=== PATIENT | male | born 1960 | race Two or more races ===

== ENCOUNTER 2020-11-01 14:50 | Emergency (ER) | payer MEDICAID, OTHER ==
[~2020-11-01] VITALS: Ht 165.1 cm; Wt 76.2 kg
[2020-11-01 16:17] LABS: Basophils # (auto) 0 10 ^3/uL (0-0.2); Basophils % (auto) 0.4 % (0.0-2.0); Eosinophils # (auto) 0.1 10 ^3/uL (0-0.8); Eosinophils % (auto) 0.9 % (0.0-7.0); Hematocrit 48.6 % (41.0-53.0); Lymphocytes # (auto) 1.8 10 ^3/uL (0.4-5.4); Lymphocytes % (auto) 21.8 % (10.0-50.0); Mean Corpuscular Hemoglobin 30.6 pg (28.0-32.0); Mean Corpuscular Volume 87.7 fL (80.0-100.0); Monocytes # (auto) 0.8 10 ^3/uL (0-1.3); Monocytes % (auto) 9.4 % (0.0-12.0); Neutrophils # (auto) 5.7 10 ^3/uL (1.6-8.6); Neutrophils % (auto) 67.5 % (37.0-80.0); Nucleated Red Blood Cells % 0.3 %; Platelet Count (auto) 218 10^3/uL (140-450); Red Blood Cells 5.55 10^6/uL (4.5-5.90); Red Cell Distribution Width 14.4 % (11.8-14.3); White Blood Cell 8.4 10^3/uL (4.4-10.8)
[2020-11-01 16:28] LABS: Alanine Aminotransferase 28 U/L (16-61); Albumin 3.4 g/dL (3.4-5.0); Anion Gap 8 (5-15); Aspartate Aminotransferase 14 U/L (15-37); Blood Urea Nitrogen 17 mg/dL (7-18); Calcium 8.1 mg/dL (8.5-10.1); Carbon Dioxide 27 mmol/L (21-32); Chloride 103 mmol/L (98-107); GFR African American 79 mL/min; GFR Non-African American 65 mL/min; Glucose 82 mg/dL (74-106); Magnesium 2.1 mg/dL (1.6-2.6); Potassium 3.1 mmol/L (3.5-5.1); Sodium 138 mmol/L (136-145)
[2020-11-01 16:33] LABS: Alkaline Phosphatase 71 U/L (45-117); Bilirubin, Total 0.3 mg/dL (0.2-1.0); Total Protein 7.6 g/dL (6.4-8.2)
[2020-11-01] MEDS ORDERED: POTASSIUM CHL 20 Meq TABLET PO ONE (16:45)
[2020-11-01 18:00] VITALS: BP 142/88
== END 2020-11-01 19:12 | disposition home or self-care (01) ==
LOC: ER 14:50
DX: S09.8XXA Other specified injuries of head, initial encounter (principal); R55 Syncope and collapse; R53.1 Weakness; I10 Essential (primary) hypertension; W18.31XA Fall on same level due to stepping on an object, initial encounter; Y93.89 Activity, other specified; Y92.89 Other specified places as the place of occurrence of the external cause; Y99.8 Other external cause status
CPT/HCPCS: 36415; 70450; 71046; 72125; 80053; 83735; 84484; 85025; 93005

== ENCOUNTER 2024-10-18 13:26 | Inpatient (IN) | payer MEDICAID ==
[~2024-10-18] VITALS: Ht 162.6 cm; Wt 80.4 kg
[2024-10-18 14:27] LABS: Basophils # (auto) 0 10 ^3/uL (0-0.2); Basophils % (auto) 0.3 % (0.0-2.0); Eosinophils # (auto) 0 10 ^3/uL (0-0.8); Eosinophils % (auto) 0.4 % (0.0-7.0); Hematocrit 53.2 % (41.0-53.0); Hemoglobin 18.2 g/dL (13.5-17.5); Lymphocytes # (auto) 0.9 10 ^3/uL (0.4-5.4); Mean Corpuscular Hemoglobin 29.6 pg (28.0-32.0); Mean Corpuscular Hgb Conc. 34.2 g/dL (32.0-36.0); Mean Corpuscular Volume 86.4 fL (80.0-100.0); Monocytes # (auto) 0.5 10 ^3/uL (0-1.3); Monocytes % (auto) 4.7 % (0.0-12.0); Neutrophils # (auto) 8.3 10 ^3/uL (1.6-8.6); Neutrophils % (auto) 85.6 % (37.0-80.0); Nucleated Red Blood Cells % 0.2 %; Platelet Count (auto) 219 10^3/uL (140-450); Red Blood Cells 6.16 10^6/uL (4.5-5.90); Red Cell Distribution Width 15.1 % (11.8-14.3); White Blood Cell 9.7 10^3/uL (4.4-10.8)
[2024-10-18 14:39] LABS: Chloride 107 mmol/L (98-107); Potassium 3.7 mmol/L (3.5-5.1); Sodium 143 mmol/L (136-145)
[2024-10-18 14:40] LABS: Anion Gap 12 (5-15); Calcium 10.3 mg/dL (8.7-10.4); Carbon Dioxide 24 mmol/L (20-31)
[2024-10-18 14:45] LABS: BUN/Creatinine Ratio 12.5 (10.0-20.0); Blood Urea Nitrogen 15 mg/dL (9-23); Glucose 104 mg/dL (74-106)
--- NOTE | 2024-10-18 14:46 | DVH ---
EXAM: XY CHEST PORTABLE TECHNIQUE: Single frontal chest radiograph CLINICAL HISTORY: hi bp COMPARISON: None Findings/Impression: Frontal chest radiograph demonstrates no acute osseous or superficial soft tissue abnormalities. The trachea is midline. The cardiac silhouette and mediastinum are within normal limits. No pneumothorax, pleural effusions, or consolidations.
[2024-10-18] MEDS: hydrALAZINE HCL 20 MG/ML VL IV ONE (15:11)
[2024-10-18] MEDS ORDERED: SODIUM CHLORIDE 0.9% 1,000 ML IV ONE (15:15)
[2024-10-18] MEDS: ONDANSETRON HCL 4 MG/2 ML VIAL IV ONE (15:24)
[2024-10-18] MEDS: ACETAMINOPHEN 325 MG TAB PO ONE (15:24)
--- NOTE | 2024-10-18 15:33 | ED.PDOC ---
HPI Comments 64 year old male VALENTINA presents to the ED with chief complaint of hypertension. Patient reports that he has been out of his BP medication for the past 2 weeks. Patient relays that he now has associated headache, nausea/vomiting, SOB, and generalized weakness for the past 2 weeks as well. Patient states he just got his refills for his medication yesterday, but has not taken them. Patient denies any chest pain, SOB, dizziness, blurred vision, numbness, weakness, tingling, or fever. 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, Medications, Allergies Allergies: Coded Allergies: NO KNOWN ALLERGIES (Unverified , 06/26/11) Home Meds Reported Medications Paroxetine Hydrochloride (Paroxetine Hydrochloride) 20 Mg Tab, 1 TAB PO DAILY 10/18/24 Atorvastatin Calcium (ATORVASTATIN CALCIUM) 20 Mg Tab, 1 TAB PO HS 10/18/24 Tamsulosin Hcl (Tamsulosin Hcl) 0.4 Mg Cap, 0.4 MG PO DAILY 10/18/24 Finasteride (Finasteride) 5 Mg Tab, 1 TAB PO 10/18/24 Hydrochlorothiazide (Hydrochlorothiazide) 12.5 Mg Tab, 1 TAB PO QAM 10/18/24 Atenolol (Atenolol) 50 Mg Tab, 1 TAB PO DAILY 10/18/24 Information Source: Patient, Emergency Med Personnel Mode of Arrival: EMS Severity: Moderate Timing: Weeks Duration: Since onset Prehospital treatment: None Onset: At Rest Cardiac Risk Factors: Hyperlipidemia, HTN PE Risk Factors: None History of: None Associated Signs and Symptoms: SOB, N/V Past Medical History PAST MEDICAL HISTORY: Anxiety, CKF, High Lipids, HTN, Thyroid Surgical History (Other): Hemorrhoid surgery Family History Family History: Reviewed,noncontributory to illness Social History Smoker: Non-Smoker Alcohol: Occasionally Drugs: Denies Drug Use Lives In: Home Constitutional: denies: chills, diaphoresis, fatigue, fever, malaise, sweats, weakness, others EENTM: denies: blurred vision, double vision, ear bleeding, ear discharge, ear drainage, ear pain, ear ringing, eye pain, eye redness, hearing loss, mouth pain, mouth swelling, nasal discharge, nose bleeding, nose congestion, nose pain, photophobia, tearing, throat pain, throat swelling, voice changes, others Respiratory: reports: shortness of breath; denies: cough, hemoptysis, orthopnea, SOB at rest, SOB with excertion, stridor, wheezing, others Cardiovascular: denies: chest pain, dizzy spells, diaphoresis, Dyspnea on exertion, edema, irregular heart beat, left arm pain, lightheadedness, palpitations, PND, syncope, others Gastrointestinal: reports: nausea, vomiting; denies: abdomen distended, abdominal pain, blood streaked bowels, constipated, diarrhea, dysphagia, difficulty swallowing, hematemesis, melena, poor appetite, poor fluid intake, rectal bleeding, rectal pain, others Genitourinary: denies: burning, dysuria, flank pain, frequency, hematuria, incontinence, penile discharge, penile sore, pain, testicle pain, testicle swelling, urgency, others Neurological: reports: headache; denies: dizziness, fainting, left sided numbness, left sided weakness, numbness, paresthesia, pre-existing deficit, right sided numbness, right sided weakness, seizure, speech problems, tingling, tremors, weakness, others Musculoskeletal: denies: back pain, gout, joint pain, joint swelling, muscle pain, muscle stiffness, neck pain, others Integumetry: denies: bruises, change in color, change in hair/nails, dryness, laceration, lesions, lumps, rash, wounds, others Allergic/Immunocompromised: denies: Difficulty Healing, Frequent Infections, Hives, Itching, others Hematologic/Lymphatic: denies: anemia, blood clots, easy bleeding, easy bruising, swollen glands, others Endocrine: denies: excessive hunger, excessive sweating, excessive thirst, excessive urination, flushing, intolerance to cold, intolerance to heat, unexplained weight gain, unexplained weight loss, others Psychiatric: denies: anxiety, bipolar disorder, depression, hopeless, panic disorder, schizophrenia, sleepless, suicidal, others All Other Systems: Reviewed and Negative Physical Exam General Appearance: Mild Distress HEENT: PERRL/EOMI, Other (Face symmetric. Moist mucous membranes.) Neck: Full Range of Motion, Normal Inspection Respiratory: Lungs Clear, No Accessory Muscle Use, No Respiratory Distress, Normal Breath Sounds Cardiovascular: No Edema, No JVD, Regular Rate/Rhythm Breast Exam: Deferred Gastrointestinal: Non Tender, Soft, Other (Actively vomiting) Genitalia: Deferred Pelvic: Deferred Rectal: Deferred Extremities: Normal inspection, Normal range of motion, Non-tender, No pedal edema Neurologic: Alert (Oriented x4), Normal Affect, Normal Mood, Other (Ambulatory. ) Cerebellar Function: NOT DONE Reflexes: NOT DONE Skin: Dry, Normal Color, Warm Lymphatic: NOT DONE EKG EKG : Comments Sinus rhythm, rate 80, MS prolonged at 208, normal QRS and QTC intervals, left axis deviation, old inferior or anteroseptal infarct, nonspecific T change. Was a procedure done? Was a procedure done?: No CP Differential Dx Differential Diagnosis: Renal Failure, Other (Hypertensive urgency/emergency, CVA, vascular headache, among others) Differential Diagnosis: CHF Differential Diagnosis: Myocardial Infarction X-Ray, Labs, Meds, VS Vital Signs Date Time Temp Pulse Resp B/P (MAP) Pulse Ox O2 Delivery O2 Flow Rate FiO2 10/18/24 16:18 92 190/120 10/18/24 16:15 Room Air* 0 21 10/18/24 15:24 98.4 10/18/24 15:11 162/139 10/18/24 15:10 98.4 93 13 162/139 (147) 96 98.4 10/18/24 13:33 80 10/18/24 13:28 98.2 85 18 176/118 (137) 97 98.2 Lab Test 10/18/24 17:18 10/18/24 15:25 10/18/24 14:10 Range/Units Urine Color Light-yellow Yellow Urine Clarity Clear Clear Urine pH 5.5 5.0-9.0 Urine Specific [place] 1.020 1.001-1.035 Urine Protein 2+ H Negative Urine Ketones 2+ H Negative Urine Blood 1+ H Negative /uL Urine Nitrite Negative Negative Urine Bilirubin Negative Negative Urine Urobilinogen Normal Negative mg/dL Urine Leukocyte Esterase Negative Negative /uL Urine RBC 4 0 - 3 /hpf Urine Microscopic WBC 7 H 0-3 /HPF Urine Squamous Epithelial Cells None seen <5 /hpf Urine Bacteria None seen None Seen /hpf Urine Mucus Few None Seen Urine Glucose 4+ H Normal mg/dL Troponin I High Sensitivity 5 5 </=54 ng/L White Blood Count 9.7 4.4-10.8 10^3/uL Red Blood Count 6.16 H 4.5-5.90 10^6/uL Hemoglobin 18.2 H 13.5-17.5 g/dL Hematocrit 53.2 H 41.0-53.0 % Mean Corpuscular Volume 86.4 80.0-100.0 fL Mean Corpuscular Hemoglobin 29.6 28.0-32.0 pg Mean Corpuscular Hemoglobin Concent 34.2 32.0-36.0 g/dL Red Cell Distribution Width 15.1 H 11.8-14.3 % Platelet Count 219 140-450 10^3/uL Mean Platelet Volume 8.9 6.9-10.8 fL Neutrophils (%) (Auto) 85.6 H 37.0-80.0 % Lymphocytes (%) (Auto) 9.0 L 10.0-50.0 % Monocytes (%) (Auto) 4.7 0.0-12.0 % Eosinophils (%) (Auto) 0.4 0.0-7.0 % Basophils (%) (Auto) 0.3 0.0-2.0 % Neutrophils # (Auto) 8.3 1.6-8.6 10 ^3/uL Lymphocytes # (Auto) 0.9 0.4-5.4 10 ^3/uL Monocytes # (Auto) 0.5 0-1.3 10 ^3/uL Eosinophils # (Auto) 0 0-0.8 10 ^3/uL Basophils # (Auto) 0 0-0.2 10 ^3/uL Nucleated Red Blood Cells 0.2 % Sodium Level 143 136-145 mmol/L Potassium Level 3.7 3.5-5.1 mmol/L Chloride Level 107 98-107 mmol/L Carbon Dioxide Level 24 20-31 mmol/L Anion Gap 12 5-15 Blood Urea Nitrogen 15 9-23 mg/dL Creatinine 1.20 0.700-1.30 mg/dL Glomerular Filtration Rate Calc 68 >90 mL/min BUN/Creatinine Ratio 12.5 10.0-20.0 Serum Glucose 104 74-106 mg/dL Calcium Level 10.3 8.7-10.4 mg/dL B-Type Natriuretic Peptide 16.91 0-100 pg/mL Current Medications Medications (Trade) Dose Ordered Sig/Ashanti Route Start Time Stop Time Status Last Admin Hydralazine HCl (Apresoline Injection) 10 mg ONCE ONCE IV 10/18/24 14:15 10/18/24 14:16 DC 10/18/24 15:11 Acetaminophen (Tylenol Tablet) 650 mg ONCE ONCE PO 10/18/24 15:15 10/18/24 15:16 DC 10/18/24 15:24 Ondansetron HCl (Zofran) 4 mg ONCE ONCE IV 10/18/24 15:30 10/18/24 15:31 DC 10/18/24 15:24 Labetalol HCl (Labetalol HCl) 10 mg ONCE ONCE IV 10/18/24 15:30 10/18/24 15:31 DC 10/18/24 16:18 Ketorolac Tromethamine (Toradol Injection) 15 mg ONCE ONCE IV 10/18/24 16:45 10/18/24 16:47 DC 10/18/24 16:49 Metoclopramide HCl (Reglan Injection) 10 mg ONCE ONCE IV 10/18/24 16:45 10/18/24 16:47 DC 10/18/24 16:49 Labetalol HCl (Labetalol HCl) 10 mg ONCE ONCE IV 10/18/24 17:25 10/18/24 17:27 DC 10/18/24 17:28 PROCEDURE(s): HWOCT - HEAD WITHOUT CONTRAST REASON: hi bp headache n/v ORDER NUMBER(s): [id number], ACCESSION NUMBER(s): [id number] EXAM: CT HEAD WITHOUT CONTRAST INDICATION: hi bp headache n/v TECHNIQUE: CT of the head without intravenous contrast. Radiation Dose Information: CT Dose: CTDI volume is 56.36 mGy. Dose-length product is 997.73 mGy*cm The dose indicators for CT are the volume Computed Tomography (CT) Dose Index (CTDIvol) and the Dose Length Product (DLP), and are measured in units of mGy and mGy-cm, respectively. These indicators are not patient dose, but values generated from the CT scanner acquisition factors. The report includes radiation exposure data for exposures received during this examination. COMPARISON: HEAD WITHOUT CONTRAST on DOS: 11/01/20 FINDINGS: There is no evidence of acute intracranial hemorrhage, extra-axial collection, mass effect, midline shift, herniation or hydrocephalus. The ventricles, sulci and cisterns are age appropriate. The nguyen-white differentiation is intact. Patchy periventricular and subcortical white matter hypoattenuation is nonspecif ic but may be related to small vessel ischemic disease. The visualized paranasal sinuses and mastoid air cells are clear. The surrounding soft tissues and osseous structures are unremarkable. IMPRESSION: 1. No acute intracranial abnormality. 2. No acute intracranial hemorrhage. 3. No paranasal sinus or mastoid disease. HS:Y EDURE(s): CXRP - CHEST PORTABLE REASON: va bp ORDER NUMBER(s): [id number], ACCESSION NUMBER(s): [id number] EXAM: XY CHEST PORTABLE TECHNIQUE: Single frontal chest radiograph CLINICAL HISTORY: va bp COMPARISON: None Findings/Impression: Frontal chest radiograph demonstrates no acute osseous or superficial soft tissue abnormalities. The trachea is midline. The cardiac silhouette and mediastinum are within normal limits. No pneumothorax, pleural effusions, or consolidations. X-Ray, Labs, Meds, VS Comment 64-year-old male with a history of hypertension, CKD, hyperlipidemia and anxiety presenting with headache, nausea, vomiting, shortness of breath and elevated blood pressure Vitals remarkable for BP 190/120 Exam remarkable for active vomiting Rhythm strip independently interpreted by me: Sinus rhythm, rate 80, no ectopy. head CT and chest x-ray unremarkable CBC, basic metabolic panel, BNP and troponins unremarkable. UA positive for ketones, protein, blood, WBCs and glucose Patient treated with the following in the ED: Hydralazine 10 mg IV, Zofran 4 mg IV, morphine 4 mg IV, labetalol 10 mg IV On re-evaluation, nausea and headache have improved. No new neurologic changes in the ED. Blood pressure was 158/110. Plan is to admit the patient for blood pressure control. Time of 1ST Reevaluation: 16:31 Reevaluation 1ST: Unchanged Patient Education/Counseling: Diagnosis, Treatment Family Education/Counseling: No Family Present Departure 1 Departure Time of Disposition: 17:00 Impression: Primary Impression: Hypertensive emergency Disposition: 09 ADMITTED INPATIENT Admit to: [facility] Condition: Guarded Critical Care Note Critical Care Time?: Yes (35 min-critical care time only) Critical care comment: Critical care time including multiple bedside re-evaluations, review of lab and imaging studies, and discussion of the case with the admitting provider. Patient is high risk for hemodynamic and/or neurologic decompensation. Stability Stability form required: No Heart Score Heart Score: Heart Score Response (Comments) Value History N/A 0 EKG N/A 0 Age N/A 0 Risk Factors N/A 0 Troponin N/A 0 Total 0 I personally scribed for GENE SKINNER MD ([email or web address]) on 10/18/24 at 15:33. Electronically submitted by Mauricio Chavez ([email or web address]). GENE SKINNER MD Oct 18, 2024 15:33
[2024-10-18] MEDS: LABETALOL HCL 20 MG/4 ML VL IV ONE ×2 (16:18→17:28)
[2024-10-18] MEDS ORDERED: ATEN50TA PO (16:29)
[2024-10-18] MEDS ORDERED: FIN5T PO (16:29)
[2024-10-18] MEDS ORDERED: ATOR20TA50 PO (16:29)
[2024-10-18] MEDS ORDERED: HYDR12.55 PO (16:29)
[2024-10-18] MEDS ORDERED: TAMS0.4C39 PO (16:29)
[2024-10-18] MEDS ORDERED: PARO1TAB33 PO (16:29)
[2024-10-18] MEDS: KETOROLAC TROMETH 30 MG/ML 1ML VIAL IV ONE (16:49)
[2024-10-18] MEDS: METOCLOPRAMIDE HCL 5MG/ml INJ 2ml VIAL IV ONE (16:49)
[2024-10-18] MEDS ORDERED: DOCUSATE SOD 100 MG CAP PO PRN (17:30)
[2024-10-18] MEDS ORDERED: ACETAMINOPHEN 325 MG TAB PO PRN (17:30)
[2024-10-18] MEDS ORDERED: NITROGLYCERIN 0.4 MG SL TAB SL PRN (17:30)
--- NOTE | 2024-10-18 17:36 | DVHHP2 ---
History of Present Illness Reason for Visit: Headache, high blood pressure History of Present Illness Nick Nieves is a 64-year-old male with past medical history of hypertension, hyperlipidemia, hypothyroidism, and anxiety who came to the hospital due to headache, nausea, and elevated blood pressure. Patient states he has had a headache for 2 weeks. He has been out of his medications for 2 weeks as well. He states he was able to get refills yesterday, but his headache continued to worsen and this morning he began experiencing nausea and vomiting prompting him to come to the hospital. Cardiovascular: HTN, hyperipidemia Psych: Anxiety Renal/: Chronic renal insuff Endocrine: Hypothyroidism Past Surgical History: None Smoke: No ALCOHOL: none Drugs: None Lives: with Family Domestic Violence: Neg Review of Systems Constitutional: Yes: Other (Headache); No: Fever, Chills, Sweats, Weakness, Malaise Eyes: No: Pain, Vision change, Conjunctivae inflammation, Eyelid inflammation, Other, Redness ENT: No: Ear pain, Ear discharge, Nose pain, Nose discharge, Nose congestion, Mouth pain, Mouth swelling, Throat pain, Throat swelling, Other Respiratory: No: Cough, Dry, Shortness of breath, SOB with excertion, Wheezing, Hemoptysis, Pleuritic Pain, Sputum, Wheezing, Other Cardiovascular: Other (Hypertension); No: Chest Pain, Palpitations, Orthopnea, Paroxysmal Noc. Dyspnea, Edema, Lt Headedness Gastrointestinal: Nausea, Vomiting; No: Abdominal Pain, Diarrhea, Constipation, Melena, Hematochezia, Other Genitourinary: No Dysuria, No Frequency, No Incontinence, No Hematuria, No Retention, No Other Musculoskeletal: No: other, neck pain, shoulder pain, arm pain, back pain, hand pain, leg pain, foot pain Skin: No: Rash, Lesions, Jaundice, Bruising, Other Neurological: No: Weakness, Numbness, Incoordination, Change in speech, Confusion, Seizures, Other Allergies: Coded Allergies: NO KNOWN ALLERGIES (Unverified , 06/26/11) Medications Current Medications Medications Dose Ordered Sig/Ashanti Route Start Time Stop Time Status Last Admin Dose Admin Atorvastatin Calcium 20 mg HS PO 10/18/24 22:00 UNV Finasteride 5 mg DAILY PO 10/19/24 10:00 UNV Paroxetine HCl 20 mg DAILY PO 10/19/24 10:00 UNV Tamsulosin HCl 0.4 mg DAILY PO 10/19/24 10:00 UNV Patient Own Medication 1 tab DAILY PO 10/19/24 10:00 UNV Patient Own Medication 1 tab QAM PO 10/19/24 07:00 UNV Exam Vital Signs Vital Signs Date Time Temp Pulse Resp B/P (MAP) Pulse Ox O2 Delivery O2 Flow Rate FiO2 10/18/24 17:28 98 177/118 10/18/24 15:24 98.4 10/18/24 15:10 13 96 General Appearance: Alert, Oriented X3, Cooperative, moderate distress HEENT: Atraumatic, PERRLA Respiratory: Clear to auscultation, Normal air movement Cardiovascular: Regular rate, Normal S1, Normal S2, Other (Hypertensive) Abdominal: Normal bowel sounds, Soft, No tenderness, No hepatospenomegaly, Other (nausea) Extremities: No clubbing, No cyanosis, No edema, Normal pulses, No tend erness/swelling Skin: No rashes, No breakdown, No significant lesion Neuro: Normal gait, Normal speech, Strength at 5/5 X4 ext Psych/Mental Status: Mental status NL, Mood NL Labs/Xrays Labs Test 10/18/24 15:25 10/18/24 14:10 Range/Units Troponin I High Sensitivity 5 </=54 ng/L White Blood Count 9.7 4.4-10.8 10^3/uL Red Blood Count 6.16 H 4.5-5.90 10^6/uL Hemoglobin 18.2 H 13.5-17.5 g/dL Hematocrit 53.2 H 41.0-53.0 % Mean Corpuscular Volume 86.4 80.0-100.0 fL Mean Corpuscular Hemoglobin 29.6 28.0-32.0 pg Mean Corpuscular Hemoglobin Concent 34.2 32.0-36.0 g/dL Red Cell Distribution Width 15.1 H 11.8-14.3 % Platelet Count 219 140-450 10^3/uL Mean Platelet Volume 8.9 6.9-10.8 fL Neutrophils (%) (Auto) 85.6 H 37.0-80.0 % Lymphocytes (%) (Auto) 9.0 L 10.0-50.0 % Monocytes (%) (Auto) 4.7 0.0-12.0 % Eosinophils (%) (Auto) 0.4 0.0-7.0 % Basophils (%) (Auto) 0.3 0.0-2.0 % Neutrophils # (Auto) 8.3 1.6-8.6 10 ^3/uL Lymphocytes # (Auto) 0.9 0.4-5.4 10 ^3/uL Monocytes # (Auto) 0.5 0-1.3 10 ^3/uL Eosinophils # (Auto) 0 0-0.8 10 ^3/uL Basophils # (Auto) 0 0-0.2 10 ^3/uL Nucleated Red Blood Cells 0.2 % Sodium Level 143 136-145 mmol/L Potassium Level 3.7 3.5-5.1 mmol/L Chloride Level 107 98-107 mmol/L Carbon Dioxide Level 24 20-31 mmol/L Anion Gap 12 5-15 Blood Urea Nitrogen 15 9-23 mg/dL Creatinine 1.20 0.700-1.30 mg/dL Glomerular Filtration Rate Calc 68 >90 mL/min BUN/Creatinine Ratio 12.5 10.0-20.0 Serum Glucose 104 74-106 mg/dL Calcium Level 10.3 8.7-10.4 mg/dL B-Type Natriuretic Peptide 16.91 0-100 pg/mL EXAM: XY CHEST PORTABLE Findings/Impression: Frontal chest radiograph demonstrates no acute osseous or superficial soft tissue abnormalities. The trachea is midline. The cardiac silhouette and mediastinum are within normal limits. No pneumothorax, pleural effusions, or consolidations. 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 Procedure Category Date Status Time Atorvastatin (Lipitor) PHA 10/18/24 Logged 22:00 Finasteride Tablet PHA 10/19/24 Logged (Proscar Tablet) 10:00 Paroxetine Tablet PHA 10/19/24 Logged (Paxil Tablet) 10:00 Tamsulosin PHA 10/19/24 Logged Hydrochloride (Flomax) 10:00 (Nf) Atenolol PHA 10/19/24 Logged 10:00 (NF) PHA 10/19/24 Logged Hydrochlorothiazide 07:00 Atenolol Tablet PHA 10/18/24 Logged (Tenormin Tablet) 17:30 Hydrochlorothiazide PHA 10/18/24 Logged Tablet (Hydrochlorot 17:30 Admit ADMIT 10/18/24 Verified 17:27 Code Status CODE 10/18/24 Verified 17:27 Date of Service: Oct 18, 2024 Billing Provider: MILLY BEGUM Common Visit Codes: [id number] INP/OBS CARE (HIGH) MILLY BEGUM Oct 18, 2024 17:36
[2024-10-18 17:51] LABS: Urine Bacteria None Seen /hpf (None Seen)
[2024-10-18] MEDS ORDERED: MORPHINE SULFATE 4 MG/ML SYR/VIAL IV PRN ×2 (18:00)
--- NOTE | 2024-10-18 18:17 | DVH ---
EXAM: CT HEAD WITHOUT CONTRAST INDICATION: hi bp headache n/v TECHNIQUE: CT of the head without intravenous contrast. Radiation Dose Information: CT Dose: CTDI volume is 56.36 mGy. Dose-length product is 997.73 mGy*cm The dose indicators for CT are the volume Computed Tomography (CT) Dose Index (CTDIvol) and the Dose Length Product (DLP), and are measured in units of mGy and mGy-cm, respectively. These indicators are not patient dose, but values generated from the CT scanner acquisition factors. The report includes radiation exposure data for exposures received during this examination. COMPARISON: HEAD WITHOUT CONTRAST on DOS: 11/01/20 FINDINGS: There is no evidence of acute intracranial hemorrhage, extra-axial collection, mass effect, midline s hift, herniation or hydrocephalus. The ventricles, sulci and cisterns are age appropriate. The nguyen-white differentiation is intact. Patchy periventricular and subcortical white matter hypoattenuation is nonspecific but may be related to small vessel ischemic disease. The visualized paranasal sinuses and mastoid air cells are clear. The surrounding soft tissues and osseous structures are unremarkable. IMPRESSION: 1. No acute intracranial abnormality. 2. No acute intracranial hemorrhage. 3. No paranasal sinus or mastoid disease. HS:Y
[2024-10-18 18:27] LABS: Urine Blood 1+ /uL (Negative); Urine Clarity Clear (Clear); Urine Color Light-Yellow (Yellow); Urine Mucus FEW (None Seen); Urine Protein, UAD 2+ (Negative); Urine Squamous Epithelial Cell None Seen /hpf (<5); Urine Urobilinogen Normal (Negative); Urine WBC 7 /HPF (0-3); Urine pH 5.5 (5.0-9.0)
[2024-10-18] MEDS: ATENOLOL 25 MG TAB PO ONE (18:56)
[2024-10-18] MEDS: hydroCHLOROthiazide 25 MG TAB PO ONE (18:56)
[2024-10-18 20:00] VITALS: BP 158/110; PULSE 91; RESP 18; O2SAT 93
[2024-10-18 20:58] VITALS: BP 158/110; PULSE 91; RESP 18; O2SAT 93
[2024-10-18] MEDS: FINASTERIDE 5 MG TAB PO SCH (21:26)
[2024-10-18] MEDS: SODIUM CHLOR 0.9% PF (SALINE LOCK) 10ML VIAL/SYR IV SCH (21:26)
[2024-10-18] MEDS: ATORVASTATIN 20 MG TAB PO SCH (21:26)
[2024-10-18] MEDS: hydrALAZINE HCL 20 MG/ML VL IV PRN (21:33)
[2024-10-18 22:00] VITALS: PULSE 84; RESP 17; O2SAT 97
[2024-10-18] MEDS: KETOROLAC TROMETH 30 MG/ML 1ML VIAL IV PRN (22:08)
[2024-10-18] MEDS: HYDROcodone-ACET 5/325MG TAB PO PRN (22:45)
[2024-10-18 22:48] VITALS: BP 159/108; PULSE 86; RESP 17; TEMP 97.7; O2SAT 98
[2024-10-19] VITALS (9 sets, daily range): BP systolic 124–174; BP diastolic 82–109; PULSE 71–93; RESP 17–20; TEMP 97–98; O2SAT 94–98
[2024-10-19] MEDS: amLODIPine BESYLATE 5 MG TAB PO ONE (00:43)
[2024-10-19 06:14] LABS: Basophils # (auto) 0 10 ^3/uL (0-0.2); Basophils % (auto) 0.2 % (0.0-2.0); Eosinophils # (auto) 0 10 ^3/uL (0-0.8); Eosinophils % (auto) 0.3 % (0.0-7.0); Hematocrit 50.8 % (41.0-53.0); Hemoglobin 17.4 g/dL (13.5-17.5); Lymphocytes # (auto) 1.5 10 ^3/uL (0.4-5.4); Lymphocytes % (auto) 12.7 % (10.0-50.0); Mean Corpuscular Hemoglobin 29.3 pg (28.0-32.0); Mean Corpuscular Hgb Conc. 34.1 g/dL (32.0-36.0); Mean Corpuscular Volume 85.7 fL (80.0-100.0); Monocytes # (auto) 1.1 10 ^3/uL (0-1.3); Monocytes % (auto) 8.9 % (0.0-12.0); Neutrophils # (auto) 9.3 10 ^3/uL (1.6-8.6); Neutrophils % (auto) 77.9 % (37.0-80.0); Platelet Count (auto) 220 10^3/uL (140-450); Red Blood Cells 5.93 10^6/uL (4.5-5.90); Red Cell Distribution Width 14.9 % (11.8-14.3); White Blood Cell 11.9 10^3/uL (4.4-10.8)
[2024-10-19 06:29] LABS: Alanine Aminotransferase 23 U/L (7-40); Albumin 4.2 g/dL (3.2-4.8); Alkaline Phosphatase 80 U/L (46-116); Anion Gap 13 (5-15); Aspartate Aminotransferase 16 U/L (13-40); BUN/Creatinine Ratio 14.4 (10.0-20.0); Bilirubin, Total 0.7 mg/dL (0.2-1.0); Blood Urea Nitrogen 18 mg/dL (9-23); Calcium 9.8 mg/dL (8.7-10.4); Carbon Dioxide 25 mmol/L (20-31); Chloride 103 mmol/L (98-107); Glucose 98 mg/dL (74-106); Sodium 141 mmol/L (136-145); Total Protein 7.1 g/dL (5.7-8.2)
[2024-10-19 06:31] LABS: Potassium 3.2 mmol/L (3.5-5.1)
[2024-10-19] MEDS: amLODIPine BESYLATE 5 MG TAB PO SCH (09:39)
[2024-10-19] MEDS: ATENOLOL 25 MG TAB PO SCH (09:39)
[2024-10-19] MEDS: PARoxetine 20 MG TAB PO SCH (09:39)
[2024-10-19] MEDS: hydroCHLOROthiazide 25 MG TAB PO SCH (09:40)
[2024-10-19] MEDS: ONDANSETRON HCL 4 MG/2 ML VIAL IV PRN (14:13)
[2024-10-19] MEDS: METOCLOPRAMIDE HCL 5MG/ml INJ 2ml VIAL IV PRN (15:22)
[2024-10-19] MEDS: TAMSULOSIN HYDROCHLORIDE 0.4 MG CAP PO SCH (17:29)
--- NOTE | 2024-10-19 19:04 | DVHPN2 ---
Subjective in bed with some nausea Reviewed: H&P, Labs Changes from previous H/P or p: No Changes Eyes: No Pain, No Vision change, No Conjunctivae inflammation, No Eyelid inflammation, No Other, No Redness ENT: No Ear pain, No Ear discharge, No Nose pain, No Nose discharge, No Nose congestion, No Mouth pain, No Mouth swelling, No Throat pain, No Throat swelling, No Other Cardiovascular: No Chest Pain, No Palpitations, No Orthopnea, No Paroxysmal Noc. Dyspnea, No Edema, No Lt Headedness; Other (Hypertension) Respiratory: No Cough, No Dry, No Shortness of breath, No SOB with excertion, No Wheezing, No Hemoptysis, No Pleuritic Pain, No Sputum, No Other Gastrointestinal: Nausea, Vomiting; No Abdominal Pain, No Diarrhea, No Constipation, No Melena, No Hematochezia, No Other Genitourinary: No Dysuria, No Frequency, No Incontinence, No Hematuria, No Retention, No Other Musculoskeletal: No other, No neck pain, No shoulder pain, No arm pain, No back pain, No hand pain, No leg pain, No foot pain Skin: No Rash, No Lesions, No Jaundice, No Bruising, No Other Objective Vitals Vital Signs Date Time Temp Pulse Resp B/P (MAP) Pulse Ox O2 Delivery O2 Flow Rate FiO2 10/19/24 16:59 98.0 74 20 152/82 (105) 96 98.0 10/19/24 08:56 Room Air* 0 21 Intake/Output Intake and Output 10/19/24 07:00 Intake Total 0 ml Balance 0 ml Intake Oral 0 ml # Voids 1 General Appearance: Alert, Oriented X3 Lungs: Clear to auscultation Cardiovascular: Regular rate, Normal S1, Normal S2 Abdomen: Normal bowel sounds Medications Current Medications Medications Dose Ordered Sig/Ashanti Route Start Time Stop Time Status Last Admin Dose Admin Atorvastatin Calcium 20 mg HS PO 10/18/24 22:00 10/18/24 21:26 20 MG Finasteride 5 mg HS PO 10/18/24 22:00 10/18/24 21:26 5 MG Paroxetine HCl 20 mg DAILY PO 10/19/24 10:00 10/19/24 09:39 20 MG Tamsulosin HCl 0.4 mg QPM PO 10/19/24 18:00 10/19/24 17:29 0.4 MG Atenolol 50 mg DAILY PO 10/19/24 10:00 10/19/24 09:39 50 MG Hydrochlorothiazide 12.5 mg DAILY PO 10/19/24 10:00 10/19/24 09:40 12.5 MG Sodium Chloride 10 ml Q8HR IV 10/18/24 22:00 10/19/24 13:02 10 ML Acetaminophen/ Hydrocodone Bitart 1 tab Q4HP PRN PO 10/18/24 17:30 10/19/24 14:13 1 TAB Ondansetron HCl 4 mg Q4HP PRN IV 10/18/24 17:30 10/19/24 14:13 4 MG Docusate Sodium 100 mg BIDPRN PRN PO 10/18/24 17:30 Acetaminophen 650 mg Q6HP PRN PO 10/18/24 17:30 Morphine Sulfate 2 mg Q4HPRN PRN IV 10/18/24 18:00 Nitroglycerin 0.4 mg Q5MINP PRN SL 10/18/24 17:30 Morphine Sulfate 2 mg Q30M PRN IV 10/18/24 18:00 Metoclopramide HCl 10 mg Q6HPRN PRN IV 10/18/24 17:45 10/19/24 15:22 10 MG Ketorolac Tromethamine 15 mg Q6HPRN PRN IV 10/18/24 17:45 10/23/24 17:44 10/19/24 17:29 15 MG Hydralazine HCl 10 mg Q6HP PRN IV 10/18/24 18:00 10/19/24 12:34 10 MG Amlodipine Besylate 5 mg DAILY PO 10/19/24 10:00 10/19/24 09:39 5 MG Laboratory Results Laboratory Tests 10/19/24 05:10 Chemistry Test 10/19/24 05:10 Albumin 4.2 g/dL (3.2-4.8) Calcium Level 9.8 mg/dL (8.7-10.4) Total Protein 7.1 g/dL (5.7-8.2) LFT Test 10/19/24 05:10 Alanine Aminotransferase (ALT) 23 U/L (7-40) Alkaline Phosphatase 80 U/L (46-116) Aspartate Amino Transferase (AST) 16 U/L (13-40) Total Bilirubin 0.7 mg/dL (0.2-1.0) Urinalysis Test 10/18/24 17:18 Urine Color Light-yellow (Yellow) Urine Clarity Clear (Clear) Urine pH 5.5 (5.0-9.0) Urine Specific [place] 1.020 (1.001-1.035) Urine Protein 2+ (Negative) H Urine Ketones 2+ (Negative) H Urine Blood 1+ /uL (Negative) H Urine Nitrite Negative (Negative) Urine Bilirubin Negative (Negative) Urine Urobilinogen Normal mg/dL (Negative) Urine Leukocyte Esterase Negative /uL (Negative) Urine RBC 4 /hpf (0 - 3) Urine Microscopic WBC 7 /HPF (0-3) H Urine Squamous Epithelial Cells None seen /hpf (<5) Urine Bacteria None seen /hpf (None Seen) Urine Mucus Few (None Seen) Urine Glucose 4+ mg/dL (Normal) H Assessment/Plan Assessment/Plan Hypertensive urgency Migraine, Intractable nausea, Hyperlipidemia, Hypothyroidism, Anxiety, Chronic kidney disease, Hypokalemia replaced k today continue antihypertensives PRN hydralazine for systolic above 160 echocardiogram Plan discussed with: Patient Date of Service: Oct 19, 2024 Billing Provider: CLIFFORD COX MD Common Visit Codes: [id number] INP/OBS CARE(HIGH) CLIFFORD COX MD Oct 19, 2024 19:04
[2024-10-20 01:00] VITALS: BP 144/92; PULSE 74; RESP 16; TEMP 97.9; O2SAT 95
[2024-10-20 05:00] VITALS: BP 142/98; PULSE 75; RESP 16; TEMP 97.7; O2SAT 94
[2024-10-20 08:00] VITALS: PULSE 26
[2024-10-20 09:00] VITALS: BP 154/102; PULSE 74; RESP 18; TEMP 96.7; O2SAT 96
--- NOTE | 2024-10-20 12:21 | ECG ---
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
[2024-10-20 13:00] VITALS: BP 161/106; PULSE 66; RESP 18; TEMP 97; O2SAT 96
[2024-10-20] MEDS ORDERED: PARO1TAB33 PO (13:23)
[2024-10-20] MEDS ORDERED: ATEN50TA PO (13:23)
[2024-10-20] MEDS ORDERED: ATOR20TA50 PO (13:23)
[2024-10-20] MEDS ORDERED: AML5T PO (13:23)
[2024-10-20] MEDS ORDERED: HYDR12.55 PO (13:23)
[2024-10-20 14:23] VITALS: BP 154/102; PULSE 74; TEMP 36.1
== END 2024-10-20 16:07 | disposition home or self-care (01) | DRG 54 ==
LOC: EDBD 13:26 → EDUNIT# 13:26 → ER 13:26 → OVERFLOW 17:27 → TELE-CENTR 17:29
PROVIDERS: ADMIT Hospitalist; ATTEND Hospitalist
DX: G43.909 Migraine, unspecified, not intractable, without status migrainosus (principal); E03.9 Hypothyroidism, unspecified; E78.5 Hyperlipidemia, unspecified; N18.9 Chronic kidney disease, unspecified; F41.9 Anxiety disorder, unspecified; E87.6 Hypokalemia; I12.9 Hypertensive chronic kidney disease with stage 1 through stage 4 chronic kidney disease, or unspecified chronic kidney disease; Z79.899 Other long term (current) drug therapy; Z91.148 Patient's other noncompliance with medication regimen for other reason; I16.0 Hypertensive urgency
CPT/HCPCS: 36415; 70450; 71045; 80048; 80053; 81001; 83880; 84484; 85025; 93005; 96374; 99291; G0378; J1885; J2405